=== PATIENT | female | born 1975 | race Caucasian/White ===

== ENCOUNTER → 2016-08-22 | Outpatient (CLI) | payer BC ==
[2016-08-22 16:17] LABS: CHLORIDE,CL 108 mmol/L (98-110); SODIUM,NA 142 mmol/L (136-146)
== END | disposition home or self-care (01) ==
LOC: MW.CHNEURO 15:36
PROVIDERS: ATTEND Psychiatry & Neurology Neuromuscular Medicine
DX: G11.8 Other hereditary ataxias (principal)
CPT/HCPCS: 36415; 80048; 84446